=== PATIENT | male | born 1975 | race Caucasian/White ===

== ENCOUNTER 2018-10-31 09:15 | Emergency (ER) | payer BC ==
[~2018-10-31] VITALS: Ht 177.8 cm; Wt 86.2 kg
[2018-10-31 10:29] LABS: BE 0.8 mmol/L (-2 to +3); PCO2 41.8 mmHg (35.0-45.0); PO2 72.9 mmHg (75.0-100.0); pH 7.406 (7.340-7.450)
[2018-10-31 10:31] LABS: ABSOLUTE EOSINOPHILS 0.1 thou/uL (0.0-0.7); ABSOLUTE LYMPHOCYTES 1.8 thou/uL (0.8-5.3); ABSOLUTE MONOCYTES 0.5 thou/uL (0.0-1.2); ABSOLUTE NEUTROPHILS 3.1 thou/uL (1.6-8.1); BASOPHILS 0.5 %; EOSINOPHILS 2.5 %; HEMATOCRIT 46.2 % (42.0-52.0); HEMOGLOBIN 16.2 gm/dL (14.0-18.0); LYMPHOCYTES 31.8 %; MCH 30.7 pg (26.0-34.0); MCV 87.8 fL (80.0-100.0); MONOCYTES 8.8 %; MPV 6.9 fl. (7.2-11.1); NUCLEATED RBCS 0 /100WBC; PLATELET COUNT* 232 thou/uL (150-400); POLYS 56.4 %; RBC 5.26 mil/uL (4.50-6.00); RDW-CV 13.3 % (10.5-14.5); WBC 5.5 thou/uL (4.0-11.0)
[2018-10-31 10:46] LABS: PROTIME 10.4 Seconds (9.20-11.50)
[2018-10-31 11:00] LABS: ANION GAP 9 mmol/L (7-16); BUN 17 mg/dL (7-18); CALCIUM 8.8 mg/dL (8.5-10.1); CHLORIDE 108 mmol/L (98-107); CO2 28 mmol/L (21-32); GLUCOSE 98 mg/dL (70-99); POTASSIUM 3.7 mmol/L (3.5-5.1); SODIUM 145 mmol/L (136-145)
[2018-10-31 11:09] LABS: ALBUMIN 3.8 g/dL (3.4-5.0); ALKALINE PHOSPHATASE 64 U/L (46-116); MAGNESIUM 2.5 mg/dL (1.8-2.4); SGOT 23 U/L (15-37); SGPT 45 U/L (30-65); TOTAL BILIRUBIN 0.3 mg/dL (<0.1-1.0); TOTAL PROTEIN 7.2 g/dL (6.4-8.2); TROPONIN-I LEVEL <0.06 ng/mL (<0.06)
[2018-10-31 12:23] LABS: URINE BILIRUBIN NEGATIVE (Negative); URINE BLOOD NEGATIVE (Negative); URINE CLARITY CLEAR; URINE COLOR YELLOW; URINE GLUCOSE-RANDOM NEGATIVE (Negative); URINE KETONES NEGATIVE (Negative); URINE LEUKOCYTES-REFLEX NEGATIVE (Negative); URINE NITRITE-REFLEX NEGATIVE (Negative); URINE PROTEIN NEGATIVE (Negative); URINE SPECIFIC GRAVITY 1.015 (1.005-1.030)
[2018-10-31 14:13] VITALS: BP 130/88
--- NOTE | 2018-10-31 16:37 | EKG ---
[place] [address] ELECTROCARDIOGRAM REPORT Name: RYAN CARD [id number] Admission: 10/31/18 Attend Phys: Discharge: 10/31/18 Date of : 73 Report #: [id number] THIS REPORT FOR: //name// [facility] ED Test Date: 2018-10-31 Test Time: 09:47:31 Pat Name: RYAN CARD Department: Room: Gender: M [employer] Supervisor: : 1975 Requested By: Su Ramires Order Number: [id number] MD: Binu Ga Measurements Intervals [place] Rate: 79 P: 52 IN: 160 QRS: -2 QRSD: 115 T: 35 QT: 386 QTc: 443 Interpretive Statements Sinus rhythm Probable left atrial enlargement Incomplete RBBB and LAFB No previous ECG available for comparison Electronically Signed On 10-31-2018 16:37:12 CDT by Binu Ga [email or web address] <ELECTRONICALLY SIGNED> By: Binu Ga MD, [facility] 10/31/18 [id number] [id number] Binu Ga MD, FACC /EPI
== END 2018-10-31 14:13 | disposition home or self-care (01) ==
LOC: M.ERS 09:15
PROVIDERS: Personal Emergency Response Attendant
DX: E86.0 Dehydration (principal); F10.129 Alcohol abuse with intoxication, unspecified; Y90.6 Blood alcohol level of 120-199 mg/100 ml; K21.9 Gastro-esophageal reflux disease without esophagitis; Z88.5 Allergy status to narcotic agent